=== PATIENT | male | born 1965 | race African-American/Black ===

== ENCOUNTER 2020-06-27 03:32 | Inpatient (IN) | payer MEDICARE, MEDICAID ==
[2020-06-27] MEDS ORDERED: methylPREDNISolone Sod Succ/PF 125 MG/2 ML VIAL ONE (04:03)
[2020-06-27] MEDS ORDERED: Magnesium 2 GM/50 ML BAG (IN WATER) ONE (04:03)
[2020-06-27] MEDS ORDERED: Aspirin Chewable 81 MG TAB ONE (04:03)
[2020-06-27] MEDS ORDERED: Azithromycin 500 MG VIAL ONE (04:04)
[2020-06-27] MEDS ORDERED: cefTRIAXone\\ROCEPHIN 2 GM VIAL ONE (04:04)
[2020-06-27 04:14] LABS: #Eosinphils 0.1 10x3/uL (0.0-0.5); #Monocytes 0.5 10x3/uL (0.0-1.1); %Basophils 0.4 % (0.0-2.0); %Eosinophils 1.3 % (0.0-6.0); %Lymphocytes 8.2 % (18.0-47.0); %Monocytes 5.4 % (0.0-10.0); %Neutrophils 84.3 % (40.0-75.0); Hemoglobin 12.1 g/dL (13.5-17.5); Mean Corpuscular HGB CONC 33.9 g/dL (32.0-36.0); Mean Corpuscular Hemoglobin 25.5 pg (27.0-33.0); Mean Corpuscular Volume 75.2 fl (81.2-95.1); Mean Platelet Volume 9.9 fl (7.4-10.4); Platelet Count 240 10x3/uL (150-450); RBC Distribution Width 16.6 % (11.5-14.5); Red Blood Cell (RBC) Count 4.75 10x6/uL (4.32-5.72); White Blood Cell (WBC) Count 8.3 10x3/uL (3.5-10.5)
[2020-06-27 04:28] LABS: ALT (SGPT) 37 U/L (8-55); AST (SGOT) 25 U/L (5-34); Albumin 3.1 g/dL (3.5-5.0); Alkaline Phosphatase 92 U/L (40-110); Anion Gap 13 mmol/L (10-20); BUN (Urea Nitrogen) 20 mg/dL (8.4-25.7); Bilirubin, Total 0.9 mg/dL (0.2-1.2); Calc. Creatinine Clearance 0 mL/min (70-130); Calcium 8.4 mg/dL (7.8-10.44); Carbon Dioxide 25 mmol/L (22-29); Chloride 107 mmol/L (98-107); Globulin 3.9 g/dL (2.4-3.5); Glucose 131 mg/dL (70-105); Potassium 3.6 mmol/L (3.5-5.1); Sodium 141 mmol/L (136-145)
[2020-06-27 04:46] LABS: CKMB 2.7 ng/mL (0-6.6)
[2020-06-27] MEDS ORDERED: Furosemide 40 MG/4 ML VIAL ONE (04:57)
[2020-06-27 05:24] LABS: SARS-CoV-2 NAA Rapid Test Not Detected (NotDetected)
[2020-06-27] MEDS ORDERED: Electrolyte Replacement Protocol 1 EACH FS SCH (06:00)
[2020-06-27 06:10] LABS: Amphetamine Not Detected (NotDetected); Barbiturates Screen Not Detected (NotDetected); Benzodiazepine Screen Not Detected (NotDetected); Cocaine Metabolite Screen Detected (NotDetected); Methadone Not Detected (NotDetected); Methamphetamine Not Detected (NotDetected); Opiate Screen Not Detected (NotDetected); Oxycodone Screen Not Detected (NotDetected); Phencyclidine (PCP) Not Detected (NotDetected); THC/Cannabinoid Screen Not Detected (NotDetected); Tricyclic Screen Not Detected (NotDetected)
[2020-06-27 06:55] LABS: Uric Acid 10.6 mg/dL (3.5-7.2)
[2020-06-27] MEDS: Enoxaparin Sodium 40 MG/0.4 ML SYRINGE SC SCH (08:39)
[2020-06-27] MEDS: Aspirin 81 mg Enteric Coated Tablet PO SCH (08:39)
[2020-06-27] MEDS: Spironolactone 25 MG TAB PO SCH (08:39)
[2020-06-27 09:03] LABS: Troponin I 0.089 ng/mL (< 0.028)
[2020-06-27] MEDS: Furosemide 40 MG/4 ML VIAL SLOW IVP SCH (16:18)
[2020-06-27] MEDS: Atorvastatin Calcium 40 MG TAB PO SCH (20:29)
[2020-06-28] MEDS ORDERED: Mag-Al Plus 1200 MG/1200 MG/120 MG/30 ML UDCUP PO SCH (03:30)
[2020-06-28 05:14] LABS: #Monocytes 0.8 10x3/uL (0.0-1.1); #Neutrophils 8.5 10x3/uL (1.5-8.4); %Basophils 0.2 % (0.0-2.0); %Eosinophils 0.1 % (0.0-6.0); %Lymphocytes 8.1 % (18.0-47.0); %Monocytes 7.9 % (0.0-10.0); %Neutrophils 83.2 % (40.0-75.0); Hemoglobin 11.5 g/dL (13.5-17.5); Mean Corpuscular HGB CONC 34.4 g/dL (32.0-36.0); Mean Corpuscular Hemoglobin 25.8 pg (27.0-33.0); Mean Corpuscular Volume 75.1 fl (81.2-95.1); Mean Platelet Volume 10.4 fl (7.4-10.4); Platelet Count 251 10x3/uL (150-450); RBC Distribution Width 16.5 % (11.5-14.5); Red Blood Cell (RBC) Count 4.45 10x6/uL (4.32-5.72); White Blood Cell (WBC) Count 10.2 10x3/uL (3.5-10.5)
[2020-06-28 05:37] LABS: Anion Gap 12 mmol/L (10-20); BUN (Urea Nitrogen) 26 mg/dL (8.4-25.7); Calc. Creatinine Clearance 80 mL/min (70-130); Calcium 8.3 mg/dL (7.8-10.44); Carbon Dioxide 27 mmol/L (22-29); Chloride 105 mmol/L (98-107); Glucose 127 mg/dL (70-105); Potassium 3.4 mmol/L (3.5-5.1); Sodium 141 mmol/L (136-145)
[2020-06-28] MEDS: Furosemide 40 MG/4 ML VIAL SLOW IVP SCH (05:44)
[2020-06-28] MEDS: Spironolactone 25 MG TAB PO SCH (08:07)
[2020-06-28] MEDS: Aspirin 81 mg Enteric Coated Tablet PO SCH (08:07)
[2020-06-28] MEDS: Enoxaparin Sodium 40 MG/0.4 ML SYRINGE SC SCH (08:07)
[2020-06-28] MEDS: Guaifenesin DM 100-10/5 ML UDCUP PO PRN ×2 (10:49→16:21)
[2020-06-28] MEDS: Atorvastatin Calcium 40 MG TAB PO SCH (20:10)
[2020-06-28] MEDS ORDERED: Melatonin 3 MG TAB PO PRN (23:19)
[2020-06-29 05:06] LABS: #Basophils 0.1 10x3/uL (0.0-0.2); #Eosinphils 0.1 10x3/uL (0.0-0.5); #Monocytes 0.6 10x3/uL (0.0-1.1); #Neutrophils 6.1 10x3/uL (1.5-8.4); %Basophils 0.6 % (0.0-2.0); %Eosinophils 1.7 % (0.0-6.0); %Monocytes 7.1 % (0.0-10.0); %Neutrophils 77.2 % (40.0-75.0); Hemoglobin 11.9 g/dL (13.5-17.5); Mean Corpuscular HGB CONC 34.2 g/dL (32.0-36.0); Mean Corpuscular Hemoglobin 25.4 pg (27.0-33.0); Mean Corpuscular Volume 74.2 fl (81.2-95.1); Mean Platelet Volume 9.6 fl (7.4-10.4); Platelet Count 251 10x3/uL (150-450); Red Blood Cell (RBC) Count 4.69 10x6/uL (4.32-5.72); White Blood Cell (WBC) Count 7.8 10x3/uL (3.5-10.5)
[2020-06-29 05:26] LABS: Anion Gap 13 mmol/L (10-20); BUN (Urea Nitrogen) 22 mg/dL (8.4-25.7); Calc. Creatinine Clearance 93 mL/min (70-130); Calcium 8.5 mg/dL (7.8-10.44); Carbon Dioxide 27 mmol/L (22-29); Chloride 105 mmol/L (98-107); Glucose 118 mg/dL (70-105); Potassium 3.5 mmol/L (3.5-5.1); Sodium 141 mmol/L (136-145)
[2020-06-29] MEDS ORDERED: Furosemide 40 MG TAB PO SCH (07:30)
[2020-06-29] MEDS: Guaifenesin DM 100-10/5 ML UDCUP PO PRN ×4 (07:49→21:31)
[2020-06-29] MEDS: Spironolactone 25 MG TAB PO SCH (07:49)
[2020-06-29] MEDS: Enoxaparin Sodium 40 MG/0.4 ML SYRINGE SC SCH (07:49)
[2020-06-29] MEDS: Aspirin 81 mg Enteric Coated Tablet PO SCH (07:50)
[2020-06-29] MEDS: Furosemide 40 MG/4 ML VIAL SLOW IVP SCH (13:09)
[2020-06-29] MEDS: Atorvastatin Calcium 40 MG TAB PO SCH (21:31)
[2020-06-30] MEDS: Furosemide 40 MG/4 ML VIAL SLOW IVP SCH ×2 (05:12→13:27)
[2020-06-30 06:24] LABS: Anion Gap 14 mmol/L (10-20); BUN (Urea Nitrogen) 21 mg/dL (8.4-25.7); Calc. Creatinine Clearance 77 mL/min (70-130); Calcium 8.5 mg/dL (7.8-10.44); Carbon Dioxide 27 mmol/L (22-29); Chloride 102 mmol/L (98-107); Glucose 126 mg/dL (70-105); Potassium 3.5 mmol/L (3.5-5.1); Sodium 139 mmol/L (136-145)
[2020-06-30] MEDS: Aspirin 81 mg Enteric Coated Tablet PO SCH (09:04)
[2020-06-30] MEDS: Spironolactone 25 MG TAB PO SCH (09:04)
[2020-06-30] MEDS: Enoxaparin Sodium 40 MG/0.4 ML SYRINGE SC SCH (09:05)
[2020-06-30] MEDS: Guaifenesin DM 100-10/5 ML UDCUP PO PRN (09:07)
[2020-06-30] MEDS: Atorvastatin Calcium 40 MG TAB PO SCH (21:33)
[2020-07-01 05:20] LABS: Anion Gap 12 mmol/L (10-20); BUN (Urea Nitrogen) 22 mg/dL (8.4-25.7); Calc. Creatinine Clearance 81 mL/min (70-130); Carbon Dioxide 29 mmol/L (22-29); Chloride 103 mmol/L (98-107); Glucose 137 mg/dL (70-105); Potassium 3.2 mmol/L (3.5-5.1); Sodium 141 mmol/L (136-145)
[2020-07-01] MEDS: Furosemide 40 MG/4 ML VIAL SLOW IVP SCH ×2 (05:23→15:07)
[2020-07-01 05:28] VITALS: BMI 28.7
[2020-07-01] MEDS: Guaifenesin DM 100-10/5 ML UDCUP PO PRN (05:33)
[2020-07-01] MEDS: Enoxaparin Sodium 40 MG/0.4 ML SYRINGE SC SCH (08:04)
[2020-07-01] MEDS: Aspirin 81 mg Enteric Coated Tablet PO SCH (08:04)
[2020-07-01] MEDS: Spironolactone 25 MG TAB PO SCH (08:05)
[2020-07-01] MEDS: Atorvastatin Calcium 40 MG TAB PO SCH (20:58)
[2020-07-02 07:06] LABS: Anion Gap 11 mmol/L (10-20); BUN (Urea Nitrogen) 18 mg/dL (8.4-25.7); Calc. Creatinine Clearance 89 mL/min (70-130); Calcium 8.5 mg/dL (7.8-10.44); Carbon Dioxide 31 mmol/L (22-29); Chloride 102 mmol/L (98-107); Glucose 124 mg/dL (70-105); Potassium 3.4 mmol/L (3.5-5.1); Sodium 141 mmol/L (136-145)
[2020-07-02] MEDS: Enoxaparin Sodium 40 MG/0.4 ML SYRINGE SC SCH (07:32)
[2020-07-02] MEDS: Aspirin 81 mg Enteric Coated Tablet PO SCH (07:33)
[2020-07-02] MEDS: Spironolactone 25 MG TAB PO SCH (07:33)
[2020-07-02] MEDS ORDERED: Furosemide 20 MG TAB PO SCH (09:00)
[2020-07-02] MEDS: Guaifenesin DM 100-10/5 ML UDCUP PO PRN (10:38)
[2020-07-02 12:10] VITALS: BP 124/80; TEMP 97.9
== END 2020-07-02 15:41 | disposition home or self-care (01) | DRG 292 ==
LOC: CSHERS 03:32 → CSHTELE 07:40
PROVIDERS: ADMIT Family Medicine; ATTEND Hospitalist
DX: I11.0 Hypertensive heart disease with heart failure (principal); I47.1 Supraventricular tachycardia; I50.43 Acute on chronic combined systolic (congestive) and diastolic (congestive) heart failure; Z20.822 Contact with and (suspected) exposure to COVID-19; I42.8 Other cardiomyopathies; I95.9 Hypotension, unspecified; I08.0 Rheumatic disorders of both mitral and aortic valves; E79.0 Hyperuricemia without signs of inflammatory arthritis and tophaceous disease; F14.10 Cocaine abuse, uncomplicated; E11.9 Type 2 diabetes mellitus without complications; Z79.82 Long term (current) use of aspirin; Z79.899 Other long term (current) drug therapy; E78.5 Hyperlipidemia, unspecified; I44.7 Left bundle-branch block, unspecified; Z91.14 Patient's other noncompliance with medication regimen; F80.81 Childhood onset fluency disorder
CPT/HCPCS: 36415; 36416; 71045; 71275; 80048; 80053; 80306; 82553; 83735; 83880; 84484; 84550; 85025; 85379; 93005; 93010; 93306; 96365; 96367; 96375; J0456; J0696; J1650; J1940; J2930; J3475; U0002

== ENCOUNTER 2020-10-10 19:21 | Inpatient (IN) | payer MEDICARE, MEDICAID ==
[2020-10-10 21:42] LABS: #Monocytes 0.4 10x3/uL (0.0-1.1); #Neutrophils 4.5 10x3/uL (1.5-8.4); %Basophils 0.5 % (0.0-2.0); %Eosinophils 0.2 % (0.0-6.0); %Monocytes 7.2 % (0.0-10.0); %Neutrophils 80.9 % (40.0-75.0); ALT (SGPT) 15 U/L (8-55); AST (SGOT) 30 U/L (5-34); Albumin 3.3 g/dL (3.5-5.0); Alkaline Phosphatase 84 U/L (40-110); Anion Gap 20 mmol/L (10-20); BUN (Urea Nitrogen) 33 mg/dL (8.4-25.7); Bilirubin, Total 2.8 mg/dL (0.2-1.2); CK (CPK) 88 U/L (30-200); Calc. Creatinine Clearance 0 mL/min (70-130); Calcium 9.4 mg/dL (7.8-10.44); Carbon Dioxide 15 mmol/L (22-29); Chloride 107 mmol/L (98-107); Glucose 103 mg/dL (70-105); Hemoglobin 9.1 g/dL (13.5-17.5); Lipase 33 U/L (8-78); Mean Corpuscular HGB CONC 33.3 g/dL (32.0-36.0); Mean Corpuscular Hemoglobin 23.9 pg (27.0-33.0); Mean Corpuscular Volume 71.8 fl (81.2-95.1); Mean Platelet Volume 10.3 fl (7.4-10.4); Platelet Count 234 10x3/uL (150-450); Potassium 4.2 mmol/L (3.5-5.1); Protein, Total 9.3 g/dL (6.0-8.3); RBC Distribution Width 23.9 % (11.5-14.5); Sodium 138 mmol/L (136-145); White Blood Cell (WBC) Count 5.6 10x3/uL (3.5-10.5)
[2020-10-10 21:56] LABS: SARS-CoV-2 NAA Rapid Test Not Detected (NotDetected)
[2020-10-10 22:15] LABS: Critical Call Chem Troponin I 0
[2020-10-10] MEDS ORDERED: Aspirin Chewable 81 MG TAB ONE (22:25)
[2020-10-10] MEDS ORDERED: Furosemide 40 MG/4 ML VIAL ONE (22:25)
[2020-10-10] MEDS ORDERED: Nitroglycerin 2% Ointment 1 INCH/1 GM Packet ONE (22:25)
[2020-10-10 22:46] LABS: Acetaminophen Less than 6.0 mcg/mL (10.0-30.0); Alcohol Less than 10 mg/dL (Less than 10); Salicylate Less than 8.0 mg/dL (15.0-30.0)
[2020-10-10 22:48] LABS: CKMB 3.7 ng/mL (0-6.6)
[2020-10-11 00:13] LABS: Lactic Acid 3.4 mmol/L (0.5-2.2)
[2020-10-11 03:23] LABS: #Monocytes 0.5 10x3/uL (0.0-1.1); #Neutrophils 4.4 10x3/uL (1.5-8.4); %Basophils 0.5 % (0.0-2.0); %Neutrophils 76.2 % (40.0-75.0); Hemoglobin 8.9 g/dL (13.5-17.5); Mean Corpuscular HGB CONC 32.7 g/dL (32.0-36.0); Mean Corpuscular Hemoglobin 23.5 pg (27.0-33.0); Mean Corpuscular Volume 71.8 fl (81.2-95.1); Mean Platelet Volume 10.3 fl (7.4-10.4); Platelet Count 229 10x3/uL (150-450); RBC Distribution Width 23.9 % (11.5-14.5); Red Blood Cell (RBC) Count 3.79 10x6/uL (4.32-5.72); White Blood Cell (WBC) Count 5.7 10x3/uL (3.5-10.5)
[2020-10-11 03:33] LABS: Bilirubin 1+ (Negative); Blood, Urine Negative (Negative); Clarity Cloudy (Clear); Glucose, Urine (Dipstick) Normal (Negative); Ketone, Urine Negative (Negative); Leukocyte Negative (Negative); Nitrite Negative (Negative); Protein, Urine (Dipstick) 100 mg/dl (Neg-Trace)
[2020-10-11 03:35] LABS: Anion Gap 19 mmol/L (10-20); BUN (Urea Nitrogen) 35 mg/dL (8.4-25.7); Calc. Creatinine Clearance 0 mL/min (70-130); Calcium 9.4 mg/dL (7.8-10.44); Carbon Dioxide 15 mmol/L (22-29); Chloride 106 mmol/L (98-107); Glucose 100 mg/dL (70-105); Magnesium 2.1 mg/dL (1.6-2.6); Potassium 4.3 mmol/L (3.5-5.1); Sodium 136 mmol/L (136-145)
[2020-10-11] MEDS ORDERED: Enoxaparin Sodium 80 MG/0.8 ML SYRINGE ONE (03:42)
[2020-10-11 03:45] LABS: RBC/HPF 0-3 HPF (0-3); Squamous Epithelial 0-3 HPF (0-3)
[2020-10-11 03:46] LABS: Bacteria/HPF 4+ HPF (None Seen); White Blood Cell Cast 0-3 LPF (None Seen)
[2020-10-11 03:47] LABS: Mucous/LPF 3+ LPF (<2+)
[2020-10-11 04:24] LABS: Troponin I 0.473 ng/mL (< 0.028)
[2020-10-11] MEDS ORDERED: Aspirin Chewable 81 MG TAB ONE (08:00)
[2020-10-11] MEDS ORDERED: Furosemide 40 MG TAB ONE ×2 (08:00→15:07)
[2020-10-11] MEDS ORDERED: Apixaban 5 MG TAB ONE ×2 (08:00→21:06)
[2020-10-11] MEDS ORDERED: Potassium Chloride 20 MEQ TAB ONE (08:01)
[2020-10-11] MEDS ORDERED: Losartan 25 MG TAB ONE (08:03)
[2020-10-11] MEDS: Potassium Chloride 20 MEQ TAB PO SCH (08:20)
[2020-10-11] MEDS: Losartan 25 MG TAB PO SCH (08:21)
[2020-10-11] MEDS: Apixaban 5 MG TAB PO SCH ×2 (08:21→21:10)
[2020-10-11] MEDS: Aspirin 81 mg Enteric Coated Tablet PO SCH (08:21)
[2020-10-11] MEDS: Furosemide 40 MG TAB PO SCH ×2 (08:21→15:12)
[2020-10-11] MEDS: Ivabradine 5 MG TAB PO SCH ×2 (09:20→21:11)
[2020-10-11 10:48] LABS: Hemoglobin A1c 5.7 % (4.0-6.0)
[2020-10-11] MEDS ORDERED: Ondansetron PF 4 MG/2 ML Vial ONE (16:46)
[2020-10-11] MEDS ORDERED: Atorvastatin Calcium 40 MG TAB ONE (21:05)
[2020-10-11] MEDS: Atorvastatin Calcium 40 MG TAB PO SCH (21:10)
[2020-10-11 23:12] VITALS: BMI 27.2
[2020-10-12 04:49] LABS: #Basophils 0.1 10x3/uL (0.0-0.2); #Eosinphils 0.1 10x3/uL (0.0-0.5); #Monocytes 0.6 10x3/uL (0.0-1.1); #Neutrophils 4.5 10x3/uL (1.5-8.4); %Lymphocytes 13.5 % (18.0-47.0); %Monocytes 9.7 % (0.0-10.0); %Neutrophils 74.5 % (40.0-75.0); Hemoglobin 8.8 g/dL (13.5-17.5); Mean Corpuscular HGB CONC 33.1 g/dL (32.0-36.0); Mean Corpuscular Hemoglobin 23.7 pg (27.0-33.0); Mean Corpuscular Volume 71.5 fl (81.2-95.1); Mean Platelet Volume 9.6 fl (7.4-10.4); Platelet Count 236 10x3/uL (150-450); Red Blood Cell (RBC) Count 3.72 10x6/uL (4.32-5.72)
[2020-10-12 05:03] LABS: Anion Gap 14 mmol/L (10-20); BUN (Urea Nitrogen) 46 mg/dL (8.4-25.7); Calc. Creatinine Clearance 69 mL/min (70-130); Calcium 8.6 mg/dL (7.8-10.44); Carbon Dioxide 20 mmol/L (22-29); Chloride 105 mmol/L (98-107); Glucose 137 mg/dL (70-105); Sodium 135 mmol/L (136-145)
[2020-10-12 08:29] LABS: Amphetamine Not Detected (NotDetected); Barbiturates Screen Not Detected (NotDetected); Benzodiazepine Screen Not Detected (NotDetected); Cocaine Metabolite Screen Not Detected (NotDetected); Methadone Not Detected (NotDetected); Methamphetamine Not Detected (NotDetected); Opiate Screen Not Detected (NotDetected); Oxycodone Screen Not Detected (NotDetected); Phencyclidine (PCP) Not Detected (NotDetected); THC/Cannabinoid Screen Not Detected (NotDetected); Tricyclic Screen Not Detected (NotDetected)
[2020-10-12] MEDS: Apixaban 5 MG TAB PO SCH ×2 (10:28→22:14)
[2020-10-12] MEDS: Ivabradine 5 MG TAB PO SCH ×2 (10:28→22:14)
[2020-10-12] MEDS: Potassium Chloride 20 MEQ TAB PO SCH (10:29)
[2020-10-12] MEDS: Aspirin 81 mg Enteric Coated Tablet PO SCH (10:29)
[2020-10-12] MEDS: Furosemide 40 MG TAB PO SCH ×3 (10:31→15:15)
[2020-10-12] MEDS: Losartan 25 MG TAB PO SCH (10:35)
[2020-10-12] MEDS: Atorvastatin Calcium 40 MG TAB PO SCH (22:15)
[2020-10-13] MEDS: Apixaban 5 MG TAB PO SCH ×2 (08:46→22:10)
[2020-10-13] MEDS: Aspirin 81 mg Enteric Coated Tablet PO SCH (08:46)
[2020-10-13] MEDS: Furosemide 40 MG TAB PO SCH ×2 (08:46→14:17)
[2020-10-13] MEDS: Losartan 25 MG TAB PO SCH (08:47)
[2020-10-13] MEDS: Potassium Chloride 20 MEQ TAB PO SCH (08:47)
[2020-10-13] MEDS: Ivabradine 5 MG TAB PO SCH ×2 (08:47→22:10)
[2020-10-13 08:52] LABS: Anion Gap 15 mmol/L (10-20); BUN (Urea Nitrogen) 45 mg/dL (8.4-25.7); Calc. Creatinine Clearance 69 mL/min (70-130); Calcium 8.8 mg/dL (7.8-10.44); Carbon Dioxide 20 mmol/L (22-29); Chloride 104 mmol/L (98-107); Glucose 96 mg/dL (70-105); Potassium 3.9 mmol/L (3.5-5.1); Sodium 135 mmol/L (136-145)
[2020-10-13 08:53] LABS: #Eosinphils 0.1 10x3/uL (0.0-0.5); #Monocytes 0.5 10x3/uL (0.0-1.1); #Neutrophils 3.7 10x3/uL (1.5-8.4); %Basophils 0.6 % (0.0-2.0); %Eosinophils 1.5 % (0.0-6.0); %Lymphocytes 18.6 % (18.0-47.0); %Monocytes 9.5 % (0.0-10.0); %Neutrophils 69.4 % (40.0-75.0); Hemoglobin 9.1 g/dL (13.5-17.5); Mean Corpuscular HGB CONC 33.2 g/dL (32.0-36.0); Mean Corpuscular Hemoglobin 23.8 pg (27.0-33.0); Mean Corpuscular Volume 71.7 fl (81.2-95.1); Mean Platelet Volume 9.9 fl (7.4-10.4); Platelet Count 249 10x3/uL (150-450); RBC Distribution Width 23.9 % (11.5-14.5); Red Blood Cell (RBC) Count 3.82 10x6/uL (4.32-5.72); White Blood Cell (WBC) Count 5.4 10x3/uL (3.5-10.5)
[2020-10-13] MEDS ORDERED: Acetaminophen 500 MG TAB PO PRN (09:02)
[2020-10-13 09:27] LABS: Microcytosis SLIGHT = 6-15 cells (100X) (0-5/hpf)
[2020-10-13 09:28] LABS: Ovalocytes SLIGHT = 2-5 cells (100X) (0-1/hpf); Platelet Morphology Comment Appears Adequate; Target Cells SLIGHT = 2-5 cells (100X) (0-1/hpf)
[2020-10-13] MEDS: Atorvastatin Calcium 40 MG TAB PO SCH (22:10)
[2020-10-14 03:52] LABS: Anion Gap 15 mmol/L (10-20); BUN (Urea Nitrogen) 49 mg/dL (8.4-25.7); Calc. Creatinine Clearance 69 mL/min (70-130); Calcium 8.9 mg/dL (7.8-10.44); Carbon Dioxide 18 mmol/L (22-29); Chloride 104 mmol/L (98-107); Glucose 116 mg/dL (70-105); Potassium 3.8 mmol/L (3.5-5.1); Sodium 133 mmol/L (136-145)
[2020-10-14 04:03] LABS: #Eosinphils 0.1 10x3/uL (0.0-0.5); #Monocytes 0.5 10x3/uL (0.0-1.1); #Neutrophils 3.3 10x3/uL (1.5-8.4); %Basophils 0.8 % (0.0-2.0); %Eosinophils 1.6 % (0.0-6.0); %Lymphocytes 18.8 % (18.0-47.0); %Monocytes 10.4 % (0.0-10.0); %Neutrophils 68.2 % (40.0-75.0); Hemoglobin 9.1 g/dL (13.5-17.5); Mean Corpuscular HGB CONC 33.6 g/dL (32.0-36.0); Mean Corpuscular Hemoglobin 24.1 pg (27.0-33.0); Mean Corpuscular Volume 71.7 fl (81.2-95.1); Mean Platelet Volume 9.6 fl (7.4-10.4); Platelet Count 264 10x3/uL (150-450); RBC Distribution Width 23.5 % (11.5-14.5); Red Blood Cell (RBC) Count 3.78 10x6/uL (4.32-5.72); White Blood Cell (WBC) Count 4.9 10x3/uL (3.5-10.5)
[2020-10-14] MEDS: Losartan 25 MG TAB PO SCH (09:17)
[2020-10-14] MEDS: Aspirin 81 mg Enteric Coated Tablet PO SCH (09:18)
[2020-10-14] MEDS: Apixaban 5 MG TAB PO SCH ×2 (09:18→21:30)
[2020-10-14] MEDS: Furosemide 40 MG TAB PO SCH ×2 (09:18→16:08)
[2020-10-14] MEDS: Ivabradine 5 MG TAB PO SCH ×2 (09:18→21:30)
[2020-10-14] MEDS: Potassium Chloride 20 MEQ TAB PO SCH (09:18)
[2020-10-14] MEDS: Atorvastatin Calcium 40 MG TAB PO SCH (21:30)
[2020-10-15 06:07] LABS: Anion Gap 16 mmol/L (10-20); BUN (Urea Nitrogen) 47 mg/dL (8.4-25.7); Calc. Creatinine Clearance 74 mL/min (70-130); Calcium 9.1 mg/dL (7.8-10.44); Carbon Dioxide 17 mmol/L (22-29); Chloride 105 mmol/L (98-107); Glucose 115 mg/dL (70-105); Potassium 4.1 mmol/L (3.5-5.1); Sodium 134 mmol/L (136-145)
[2020-10-15 06:09] LABS: #Eosinphils 0.1 10x3/uL (0.0-0.5); #Monocytes 0.5 10x3/uL (0.0-1.1); #Neutrophils 2.9 10x3/uL (1.5-8.4); %Basophils 0.9 % (0.0-2.0); %Eosinophils 1.6 % (0.0-6.0); %Lymphocytes 20.9 % (18.0-47.0); %Monocytes 10.7 % (0.0-10.0); %Neutrophils 65.7 % (40.0-75.0); Hemoglobin 9.4 g/dL (13.5-17.5); Mean Corpuscular HGB CONC 34.2 g/dL (32.0-36.0); Mean Corpuscular Hemoglobin 23.9 pg (27.0-33.0); Mean Platelet Volume 9.7 fl (7.4-10.4); Platelet Count 272 10x3/uL (150-450); RBC Distribution Width 23.3 % (11.5-14.5); Red Blood Cell (RBC) Count 3.93 10x6/uL (4.32-5.72); White Blood Cell (WBC) Count 4.4 10x3/uL (3.5-10.5)
[2020-10-15] MEDS: Ivabradine 5 MG TAB PO SCH ×2 (08:32→21:46)
[2020-10-15] MEDS: Aspirin 81 mg Enteric Coated Tablet PO SCH (08:32)
[2020-10-15] MEDS: Apixaban 5 MG TAB PO SCH ×2 (08:33→21:46)
[2020-10-15] MEDS: Furosemide 40 MG TAB PO SCH ×2 (08:33→15:12)
[2020-10-15] MEDS: Losartan 25 MG TAB PO SCH (08:33)
[2020-10-15] MEDS: Potassium Chloride 20 MEQ TAB PO SCH (08:33)
[2020-10-15] MEDS: Atorvastatin Calcium 40 MG TAB PO SCH (21:46)
[2020-10-16 08:56] VITALS: BP 111/69; TEMP 97.8
[2020-10-16] MEDS: Furosemide 40 MG TAB PO SCH (09:15)
[2020-10-16] MEDS: Apixaban 5 MG TAB PO SCH (09:15)
[2020-10-16] MEDS: Losartan 25 MG TAB PO SCH (09:15)
[2020-10-16] MEDS: Potassium Chloride 20 MEQ TAB PO SCH (09:15)
[2020-10-16] MEDS: Aspirin 81 mg Enteric Coated Tablet PO SCH (09:15)
[2020-10-16] MEDS: Ivabradine 5 MG TAB PO SCH (09:15)
== END 2020-10-16 10:03 | disposition home or self-care (01) | DRG 175 ==
LOC: CSHERS 19:21 → CSHERHOLD 10-11 03:23 → INTOOBSV 10-11 03:23 → CSHTELE 10-11 22:54 → OBSVTOIN 10-12 15:10
PROVIDERS: ADMIT Family Medicine; ATTEND Family Medicine
DX: I26.99 Other pulmonary embolism without acute cor pulmonale (principal); J96.01 Acute respiratory failure with hypoxia; I50.43 Acute on chronic combined systolic (congestive) and diastolic (congestive) heart failure; I42.8 Other cardiomyopathies; N17.9 Acute kidney failure, unspecified; I24.8 Other forms of acute ischemic heart disease; Z20.822 Contact with and (suspected) exposure to COVID-19; I44.7 Left bundle-branch block, unspecified; E78.5 Hyperlipidemia, unspecified; I08.0 Rheumatic disorders of both mitral and aortic valves; R77.8 Other specified abnormalities of plasma proteins; E88.89 Other specified metabolic disorders; R62.7 Adult failure to thrive; Z79.82 Long term (current) use of aspirin; Z79.899 Other long term (current) drug therapy; Z82.3 Family history of stroke; Z82.49 Family history of ischemic heart disease and other diseases of the circulatory system; Z80.0 Family history of malignant neoplasm of digestive organs
CPT/HCPCS: 36415; 71045; 71275; 80048; 80053; 80306; 80307; 81003; 81015; 82010; 82550; 82553; 83036; 83605; 83690; 83735; 83880; 84484; 85025; 85379; 87040; 93005; 93010; 93306; 94760; 96372; 96374; G0378; J1650; J1940; J2405; U0002